=== PATIENT | female | born 1975 | race American Indian/Alaskan Native ===

== ENCOUNTER 2018-11-09 15:26 | Emergency (ER) | payer OTHER ==
[2018-11-09 16:13] VITALS: BP 134/57
--- NOTE | 2018-11-09 16:13 | Emergency Department Report ---
Blank Doc - Documentation Documentation: This is a 43-year-old female that presents with right auxiliary boil. This initial assessment/diagnostic orders/clinical plan/treatment(s) is/are subject to change based on patient's health status, clinical progression and re- assessment by fellow clinical providers in the ED. Further treatment and workup at subsequent clinical providers discretion. Patient/guardians urged not to elope from the ED as their condition may be serious if not clinically assessed and managed. Initial orders include: 1- Patient sent to [facility] for further evaluation and treatment
[2018-11-09] MEDS ORDERED: XYLOCAINE 1% MPF 5 mL INFILTRATI ONE ×2 (20:33)
--- NOTE | 2018-11-09 20:48 | Emergency Department Report ---
Abscess Boil HPI - HPI Chief Complaint: Skin/Abscess/Foreign Body Stated Complaint: KNOT UNDER (R) ARM/SWOLLEN Time Seen by Provider: 11/09/18 16:10 Duration: >1 Week Location: Upper Extremity Severity: Moderate History: Yes Pain, Yes Previous History, No Fever, No Purulent Drainage, No Numbness, No Foreign Body, No Insect Bite HPI: pt is a 43 y/o aaf with right axillary abscess 1x2 cm erythema pain flucutance seen by pcp started on clindamycin how pain erythema pesists, Home Medications: Previous Rx's Medication Instructions Recorded Last Taken Type Famotidine [Pepcid] 20 mg PO QHS #30 tablet 07/18/13 Unknown Rx HYDROcodone/APAP 5-325 [[place] 1 each PO Q6HR PRN #20 tablet 07/18/13 Unknown Rx 5/325 mg] Metoclopramide HCl [Reglan] 10 mg PO TID PRN #20 tablet 07/18/13 Unknown Rx Mupirocin [Bactroban 2% CREAM] 1 applicatio TP TID #1 07/18/13 Unknown Rx Acetaminophen/Codeine [Tylenol 1 tab PO Q6H PRN #12 tab 11/09/18 Unknown Rx /Codeine # 3 tab] Allergies/Adverse Reactions: Allergies Allergy/AdvReac Type Severity Reaction Status Date / Time No Known Allergies Allergy Unverified 07/17/13 16:26 ED Review of Systems ROS: Stated complaint: KNOT UNDER (R) ARM/SWOLLEN Other details as noted in HPI Constitutional: denies: chills, fever Eyes: denies: eye pain, eye discharge, vision change ENT: denies: ear pain, throat pain Respiratory: denies: cough, shortness of breath, wheezing Cardiovascular: denies: chest pain, palpitations Endocrine: no symptoms reported Gastrointestinal: denies: abdominal pain, nausea, diarrhea Genitourinary: denies: urgency, dysuria, discharge Musculoskeletal: denies: back pain, joint swelling, arthralgia Skin: other (abscess right axillary). denies: rash, lesions Neurological: denies: headache, weakness, paresthesias Psychiatric: denies: anxiety, depression Hematological/Lymphatic: denies: easy bleeding, easy bruising ED Past Medical Hx - Past Medical History Previous Medical History?: Yes Hx Hypertension: Yes Additional medical history: high cholesterol - Surgical History Past Surgical History?: Yes Additional Surgical History: tubal ligation - Social History Smoking Status: Never Smoker Substance Use Type: None - Medications Home Medications: Home Medications Medication Instructions Recorded Confirmed Last Taken Type Famotidine [Pepcid] 20 mg PO QHS #30 tablet 07/18/13 Unknown Rx HYDROcodone/APAP 5-325 [[place] 1 each PO Q6HR PRN #20 tablet 07/18/13 Unknown Rx 5/325 mg] Metoclopramide HCl [Reglan] 10 mg PO TID PRN #20 tablet 07/18/13 Unknown Rx Mupirocin [Bactroban 2% CREAM] 1 applicatio TP TID #1 07/18/13 Unknown Rx Acetaminophen/Codeine [Tylenol 1 tab PO Q6H PRN #12 tab 11/09/18 Unknown Rx /Codeine # 3 tab] ED Abscess Boil Physical Exam - Exam General: Vital signs noted. No distress. Alert and acting appropriately. Front/Back of Body, Lg (Color): 1 - right axillary abscess, 1x2 cm erythema fluctuant Size: 2 cm Exam: Yes Tenderness, Yes Fluctuance, Yes Surrounding Cellulites/Erythema, Yes Normal Neurologic Exam, Yes Normal Circulation, No Lymphangitis, No Crepitation, No Heart Murmur I & D Note - I & D Note I & D Note: Right before meals infected cyst and a 2 cm and cleaned with Betadine solution anesthesia 1% lidocaine 3 mL incision with 11 blade scalpel moderate assist E output wound irrigated with 40 mL sterile saline. Iodoform sterile dressing applied all bleeding is controlled patient tolerated procedure with minimal distress ED Course Vital Signs 11/09/18 16:11 Temperature 98.3 F Pulse Rate 72 Respiratory 18 Rate Blood Pressure 134/57 O2 Sat by Pulse 100 Oximetry Critical care attestation.: If time is entered above; I have spent that time in minutes in the direct care of this critically ill patient, excluding procedure time. ED Medical Decision Making - Medical Decision Making Right axillary infected cyst fried D see procedure note on bleeding is controlled patient tolerated procedure with minimal distress sterile dressings intact no bruits controlled patient will continue to take clindamycin and Tylenol 3 when necessary for pain patient will follow with PCP Dr. Mccrary in 2 days for wound check Patient will return immediately should symptoms worsen patient verbalized understanding of discharge plan proceed to home in stable condition at this time ED Disposition Clinical Impression: Infected cyst of skin Disposition: DC- TO HOME OR SELFCARE Is pt being admited?: No Does the pt Need Aspirin: No Condition: Stable Instructions: Abscess Incision and Drainage (ED) Prescriptions: Acetaminophen/Codeine [Tylenol /Codeine # 3 tab] 1 tab PO Q6H PRN #12 tab PRN Reason: pain Referrals: PRIMARY CARE, [Referring] - 3-5 Days Forms: Work/School Release Form(ED) Time of Disposition: 21:06
== END 2018-11-09 21:13 | disposition home or self-care (01) ==
LOC: ED 15:26
DX: L02.411 Cutaneous abscess of right axilla (principal); I10 Essential (primary) hypertension; E78.00 Pure hypercholesterolemia, unspecified; Z98.51 Tubal ligation status

== ENCOUNTER 2020-10-03 09:44 | Day surgery (SDC) | payer BC, OTHER ==
[2020-10-03] MEDS ORDERED: diphenhydrAMINE 50 MG/ML VIAL ONE (10:30)
[2020-10-03] MEDS ORDERED: HYDROmorphone 1 MG/1 ML INJ IV PRN ×2 (10:30)
[2020-10-03] MEDS ORDERED: ACETAMINOPHEN 500 MG TAB PO NR (10:30)
[2020-10-03] MEDS ORDERED: MAGNESIUM OXIDE 400 MG TAB PO NR (10:30)
[2020-10-03] MEDS ORDERED: LACTATED RINGERS 1,000 ML IV SCH (10:30)
[2020-10-03] MEDS ORDERED: ONDANSETRON 4 MG/2 ML INJ IV PRN (10:30)
[2020-10-03] MEDS ORDERED: MORPHINE 2 MG/1 ML INJ IV NR (10:31)
--- NOTE | 2020-10-03 10:32 | Anesthesia Day of Surgery ---
Anesthesia Day of Surgery - Day of Surgery Patient Examined: Yes Patient H&P Reviewed: Yes Patient is NPO: Yes
--- NOTE | 2020-10-03 10:34 | Anesthesia Consultation ---
Anesthesia Consult and Med Hx Date of service: 10/03/20 - Airway Anesthetic Teeth Evaluation: Good ROM Head & Neck: Adequate Mental/Hyoid Distance: Adequate Mallampati Class: Class I Intubation Access Assessment: Good - Pre-Operative Health Status ASA Pre-Surgery Classification: ASA2 Proposed Anesthetic Plan: General - Pulmonary Hx Smoking: No Hx Respiratory Symptoms: No (+2FS) Hx Sleep Apnea: No (JUNIE PRE SCREEN LOW RISK) - Cardiovascular System Hx Hypertension: Yes (X 4 YRS) - Central Nervous System Hx Psychiatric Problems: Yes (Depression) - Gastrointestinal Hx Gastroesophageal Reflux Disease: No - Endocrine Hx Renal Disease: No Hx Non-Insulin Dependent Diabetes: No Hx Thyroid Disease: No - Hematic Hx Sickle Cell Disease: No - Other Systems Hx Substance Use: Yes (MARIJUANA 2-3 X PER WEEK) Hx Cancer: No Hx Obesity: Yes
[2020-10-03] MEDS ORDERED: SUCCINYLCHOLINE CHLORIDE 200 MG/10 ML INJ MDV ONE (10:35)
[2020-10-03] MEDS ORDERED: dexAMETHasone 20 MG/5 ML VIAL ONE (10:35)
[2020-10-03] MEDS ORDERED: ONDANSETRON 4 MG/2 ML INJ ONE (10:35)
[2020-10-03] MEDS ORDERED: LIDOCAINE MPF (2%) 20 MG/1 ML VIAL 5 ML ONE (10:35)
[2020-10-03] MEDS ORDERED: ROCURONIUM 50 MG/5 ML INJ IV ONE (10:35)
[2020-10-03] MEDS ORDERED: propofoL 200 MG/20 ML VIAL IV ONE (10:40)
[2020-10-03] MEDS ORDERED: fentaNYL 100 MCG/2 ML INJ ONE (10:58)
[2020-10-03] MEDS ORDERED: CELECOXIB 200 MG CAP PO NR (11:00)
[2020-10-03] MEDS ORDERED: MIDAZOLAM 2 MG/2 ML INJ IV NR (11:00)
[2020-10-03] MEDS ORDERED: GABAPENTIN 300 MG CAP PO NR (11:00)
[2020-10-03] MEDS ORDERED: BUPIVACAINE/PF (0.25%) 2.5 MG/ML 30 ML VIAL INFILTRATI ONE ×2 (11:16→11:32)
[2020-10-03] MEDS ORDERED: DIBUCAINE 1% OINT 28 GM ONE (11:16)
[2020-10-03] MEDS ORDERED: DIBUCAINE 1% OINT 28 GM PR ONE (11:33)
[2020-10-03] MEDS ORDERED: SODIUM CHLORIDE 0.9% IRR 1,500 ML BOTTLE IR ONE (11:33)
--- NOTE | 2020-10-03 12:04 | Short Stay Summary ---
"Short Stay Documentation Date of service: 10/03/20 - History Principal diagnosis: hemorrhoids H&P: obtained from office - Allergies and Medications Current Medications: Allergies tramadol Allergy (Verified 09/29/20 16:23) Itching , MUSCLE SPAMS Home Medications Medication Instructions Recorded Confirmed Last Taken Type Amitriptyline [Elavil] 25 mg PO QHS 09/29/20 10/03/20 10/02/20 History Bimatoprost [Lumigan 0.01%] 1 drop OP QPM 09/29/20 09/29/20 10/02/20 History DULoxetine [Cymbalta] 30 mg PO DAILY 09/29/20 09/29/20 10/03/20 08:30 History Ibuprofen [Motrin] 800 mg PO Q8HR PRN 09/29/20 09/29/20 10/02/20 History amLODIPine [Norvasc] 5 mg PO DAILY 09/29/20 09/29/20 10/03/20 08:30 History Active Medications Acetaminophen (Acetaminophen 500 Mg Tab) 1,000 mg PO ONCE NR Stop: 10/03/20 20:00 Last Admin: 10/03/20 10:45 Dose: 1,000 mg Documented by: Celecoxib (Celecoxib 200 Mg Cap) 400 mg PO PREOP NR Stop: 10/03/20 20:00 Last Admin: 10/03/20 10:45 Dose: 400 mg Documented by: Gabapentin (Gabapentin 300 Mg Cap) 300 mg PO PREOP NR Stop: 10/03/20 20:00 Last Admin: 10/03/20 10:45 Dose: 300 mg Documented by: Hydromorphone HCl (Hydromorphone 1 Mg/1 Ml Inj) 0.25 mg IV Q10MIN PRN PRN Reason: Pain, Moderate (4-6) Stop: 10/03/20 20:00 Hydromorphone HCl (Hydromorphone 1 Mg/1 Ml Inj) 0.5 mg IV Q10MIN PRN PRN Reason: Pain , Severe (7-10) Stop: 10/03/20 20:00 Lactated Ringer's (Lactated Ringers) 1,000 mls @ 125 mls/hr IV DIRECT NOLA Last Admin: 10/03/20 10:45 Dose: 125 mls/hr Documented by: Magnesium Oxide (Magnesium Oxide 400 Mg Tab) 400 mg PO ONCE NR Stop: 10/03/20 20:00 Last Admin: 10/03/20 10:45 Dose: 400 mg Documented by: Midazolam HCl (Midazolam 2 Mg/2 Ml Inj) 2 mg IV PREOP NR Stop: 10/03/20 23:59 Last Admin: 10/03/20 10:47 Dose: 2 mg Documented by: Morphine Sulfate (Morphine 2 Mg/1 Ml Inj) 2 mg IV ONCE NR Stop: 10/03/20 18:00 Last Admin: 10/03/20 10:52 Dose: 2 mg Documented by: Ondansetron HCl (Ondansetron 4 Mg/2 Ml Inj) 4 mg IV ONCE PRN PRN Reason: Nausea And Vomiting Stop: 10/03/20 18:00 - Brief post op/procedure progress note Date of procedure: 10/03/20 Pre-op diagnosis: hemorrhoids Post-op diagnosis: same Procedure: rectal exam under anesthesia, hemorrhoidectomy, pudendal nerve block Anesthesia: GETA, local Findings: Grade 1 internal hemorrhoid with associated thrombosed external hemorrhoid - r anterior position Surgeon: GERSON MORE Ict Help Desk Officer: IKER LAURA Estimated blood loss: minimal Pathology: list (internal/external hemorrhoid complex) Specimen disposition: to lab Condition: stable - Hospital course Hospital course: Pt observe in PACU and discharged to home in stable condition when criteria met - Disposition Condition at discharge: Good Disposition: DC-01 TO HOME OR SELFCARE Short Stay Discharge Plan Diet: regular, other (soft diet) Wound: open to air Additional Instructions: General Surgery Gerson More DO [address] | [place] [address] | F ([phone]) [email or web address] You have undergone surgery to remove a hemorrhoid Diet: Soft diet - foods that are easy to digest Make sure to drink plenty of water and stay hydrated Activity: You are encouraged to walk and may go up and down the steps. 1. Do [address] if you are taking prescription, narcotic pain medications. 2. Do not do any heavy lifting greater than 15 lbs for next 1 week 3. Sit on soft surfaces Showering: You may shower tomorrow. Pat area dry, do not scrub. You may resume sitz baths tomorrow Wound care instructions: You may apply dibucaine topical ointment to the perirectal area. No other wound care needed. Pain medications: You may use over the counter pain medication for pain. If your pain is not controlled by those medications, you may take the prescribed medication. You have been given a prescription for [place] Take exactly as prescribed. If you have any unused prescription pain medication, please return to your pharmacy to have is discarded. Bowel regimen: 1. Take colace 100mg PO two times a day for the next 5 days 2. Take miralax powder 1 packet daily for the next 5 day 3. Drink at least 60 fl oz of water a day A soft white gauze will be expelled from the rectum during first BM, this is normal. A small amount of bleeding after surgery is normal. If you have excessive bleeding, call surgeon. Reasons to call Surgeons office: If you have fevers >100.4 If you are having increasing abdominal pain or vomiting If you have pain that is not controlled with prescription pain medications If you have drainage if pus or redness around the incisions. When to come back to see your Surgeon: Please call the office ([phone]) to make an appointment to see the surgeon in 2 week. Call if you have any questions. [address] [facility] floor Follow up with: MIRI DEAN MD [Primary Care Provider] - 7 Days GERSON MORE DO [Staff Physician] - 14 Days Prescriptions: Docusate Sodium [Colace] 100 mg PO BID 5 Days #30 capsule polyethylene glycoL 3350 [Miralax 3350] 17 gm PO QDAY 5 Days #15 packet HYDROcodone/APAP 5-325 [[place] 5/325] 1 each PO Q6HR PRN #20 tablet PRN Reason: Pain , Severe (7-10)"
--- NOTE | 2020-10-03 12:32 | Post Anesthesia Evaluation ---
- Post Anesthesia Evaluation Patient Participated: Yes Airway Patent: Yes Stable Respiratory Function: Yes Nausea/Vomiting: No Temp > 96.8F: Yes Pain Manageable: Yes Adequeate Hydration: Yes Anesthesia Complications: No Block Receding Appropriately: Not Applicable Patient on Ventilator: No
[2020-10-03] MEDS ORDERED: HYDROcodone/ACETAMINOPHEN 5-325 MG TAB PO PRN (13:19)
--- NOTE | 2020-10-03 13:51 | Operative Report ---
Operative Report Operative Report: Date of procedure: 10/03/20 Pre-op diagnosis: hemorrhoids Post-op diagnosis: same Procedure: rectal exam under anesthesia, hemorrhoidectomy, pudendal nerve block Anesthesia: GETA, local Findings: Grade 1 internal hemorrhoid with associated thrombosed external hemorrhoid - r anterior position Surgeon: GERSON MORE Electronic Masking System Operator: IKER LAURA Estimated blood loss: minimal Pathology: list (internal/external hemorrhoid complex) Specimen disposition: to lab Condition: stable Hospital course: Pt observe in PACU and discharged to home in stable condition when criteria met HPI and indication: Patient is a 45-year-old female who was referred to the surgery clinic for painful hemorrhoid. The patient relate a history of increasing pain at the site, along with spotting of blood. On physical exam it was felt that the patient had a prolapsed however an internal exam could not be performed due to pain. It was recommended that the patient undergo rectal exam under anesthesia and hemorrhoidectomy. All risk benefits, alternatives to surgery were discussed and questions answered. Consent was obtained. Procedure in detail: Patient was identified in the preoperative area, taken back to operating room. After anesthesia was induced on the patient's stretcher, the patient was transferred to the operating room table in prone position. All bony prominences were padded appropriately per protocol. The patient was placed in jackknife position and the buttocks taped apart using silk tape. The rectum and perirectal area was prepped and draped in usual sterile fashion a timeout performed. A rectal exam under anesthesia was performed. A retractor was placed in the rectum and the rectum was examined circumferentially. The patient had a small thrombosed external hemorrhoid at the site of pain along with a associated grade 1 hemorrhoid at the right anterior position. The remainder of the exam was unremarkable. It was decided to resect the right anterior internal and external hemorrhoid complex. The apex of the hemorrhoid was identified and ligated using a 2-0 Vicryl interrupted stitch. The suture was left intact for reapproximating the mucosa. Using a hand-held harmonic scalpel the internal hemorrhoid column was dissected from the underlying muscle with great care to preserve the underlying muscle. The dissection was taken down to the suture ligature at the apex and then the hemorrhoid transected. The hemorrhoid was passed off the table as a specimen. The external hemorrhoid was excised by first incising the skin using a 15 blade and then ligating the hemorrhoid using the hand-held harmonic. This was also passed off the table as a specimen. The wound bed was checked for hemostasis which was carefully ensured. The rectal mucosa was then reapp roximated using the 2-0 Vicryl stitch in a running fashion. The anorectal skin was loosely approximated using 3-0 chromic suture. A small opening was left to allow for drainage. The rectum was once again checked for hemostasis. This was very carefully ensured. The rectum was irrigated. A pudendal nerve block was performed. A Surgifoam gauze coated with dibucaine was inserted into the rectum. The skin was cleansed and a 4 x 4 gauze was used to cover the rectum, covered by ABD pad, and secured with mesh underwear. At the end of the case all sponge, instrument, sharp counts were correct x2. The patient was awoken from anesthesia and transferred back to the stretcher in supine position. She was extubated and taken to PACU in stable condition.
[2020-10-03 18:13] VITALS: BP 152/84
== END 2020-10-03 09:45 | disposition home or self-care (01) ==
LOC: OR 09:44
PROVIDERS: ATTEND Surgery
DX: K64.8 Other hemorrhoids (principal); K64.4 Residual hemorrhoidal skin tags; I10 Essential (primary) hypertension; E66.9 Obesity, unspecified; F32.9 Major depressive disorder, single episode, unspecified; H40.9 Unspecified glaucoma; Z79.899 Other long term (current) drug therapy; Z88.8 Allergy status to other drugs, medicaments and biological substances; Z98.890 Other specified postprocedural states; Z68.32 Body mass index [BMI] 32.0-32.9, adult; Z86.19 Personal history of other infectious and parasitic diseases
CPT/HCPCS: 46946; 81025; 88304; J0330; J1100; J1170; J1200; J2250; J2270; J2405; J2704; J3010; J7120; U0003